=== PATIENT | female | born 1960 | race Caucasian/White ===

== ENCOUNTER 2023-11-07 12:14 | Outpatient (AMB) | payer MEDICARE, OTHER, SELFPAY ==
--- NOTE | 2023-11-07 12:19 | HO.NEPHOV ---
Vital Signs 11/07/23 12:20 Height 5 ft 4 in Weight 380 lb BMI 65.2 BP 132/82 Blood Pressure Location Lt brachial Position Sitting Pulse 91 Pulse Source Pulse Oximeter Pulse Oximetry (%) 95 Oxygen Delivery Method Room Air Intake Visit Reasons: CDK/ Continue care RTANE/ Confirmed Hand Leather Trimmer Required: No Accompanied by: Son Allergies chlorpromazine [From Thorazine] Allergy (Verified 11/07/23 12:24) Unknown Penicillins Allergy (Verified 11/07/23 12:24) Unknown HPI Comments Details: 58-year-old man with history hematuria. She has a renal mass and has been followed by Urology. - She feels that diuretics are causing the hematuria. Especially Lasix. She wants to try HCTZ. [facility] Surgical History (Updated 11/07/23 @ 12:28 by Jovita Ramsey MA) History of rectal surgery H/O arthroscopic knee surgery H/O wrist surgery History of section History of hernia repair S/P removal of right ovary History of cholecystectomy H/O: knee surgery H/O: hysterectomy History of lumpectomy Family History (Updated 11/07/23 @ 12:29 by Jovita Ramsey MA) Father Diabetes Sister Diabetes Brother Diabetes Stroke Mother Hypertension Social History (Updated 11/07/23 @ 12:30 by Jovita Ramsey MA) Alcohol intake: never Patient Tobacco Use Status: Never used Tobacco Physical Exam Vital Signs: Last Vital Signs Pulse 91 11/07/23 12:20 BP 132/82 11/07/23 12:20 Pulse Ox 95 11/07/23 12:20 Oxygen Delivery Method Room Air 11/07/23 12:20 BMI result Body Mass Index 65.2 Awake. Comfortable. Will be Neck is supple. Mucosa moist. Lungs clear Heart S1-S2 heard no gallop. Abdomen soft. Extremities no edema. No involuntary movements. No myoclonus. Const General: comfortable Orientation/consciousness: patient oriented x3 HEENT Head: No normal to inspection Mouth: moist mucous membranes Neck Neck: Yes supple and Yes no JVD Resp Auscultation: clear to auscultation bilaterally, no rales and rub present Cardio Jugular venous distension: no JVD Palpation: no palpable S3 and no palpable S4 Heart sounds: no rubs GI Palpation (GI): Soft to palpation and nontender Percussion: No Fluid wave present General: Yes no CVA tenderness Back/Spine/Pelvis Back: no CVA tenderness Skin General skin exam: no rashes or lesions noted Neuro General: patient oriented x3 Extrem General: Yes no pedal edema and No clubbing Results Reviewed Nephrology Results: No Data to Display Assessment & Plan Assessment & Plan (1) UTI (urinary tract infection): Code(s): N39.0 - Urinary tract infection, site not specified Category: Medical Plan UTI resolved. She feels that diuretic could be playing a role. At her request I would switch hctz QD instead of QOD She will need Urology follow-up Coding Level of Care Code Est Pt Level 2 (87581) Diagnoses UTI (urinary tract infection) N39.0
[2023-11-07 12:20] VITALS: BP 132/82; PULSE 91; O2SAT 95; BMI 65.2
== END 2023-11-07 12:49 | disposition home or self-care (01) ==
PROVIDERS: PCP Family Medicine; Visit Provider Internal Medicine Hypertension Specialist
DX: N39.0 Urinary tract infection, site not specified (principal)
CPT/HCPCS: 99212

== ENCOUNTER → 2023-11-07 12:14 | Outpatient (BNVA) | payer MEDICARE, OTHER, SELFPAY | PROVIDERS: PCP Family Medicine; Visit Provider Internal Medicine Hypertension Specialist | DX: N39.0 Urinary tract infection, site not specified (principal) | CPT/HCPCS: 99212 ==

== ENCOUNTER 2024-05-28 14:29 | Outpatient (AMB) | payer MEDICARE, OTHER, SELFPAY ==
--- NOTE | 2024-05-28 14:22 | HO.NEPHOV ---
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 Accompanied by: Self / Same As Patient Allergies chlorpromazine [From Thorazine] Allergy (Verified 05/28/24 14:23) Unknown Penicillins Allergy (Verified 05/28/24 14:23) Unknown Medication List - Last Reconciled 05/28/24 by Favian Ndiaye MD alprazolam 0.5 mg PO DAILY PRN azelastine-fluticasone 137-50 mcg/spray 1 spray intranasal BID bisoprolol fumarate 5 mg PO DAILY cephalexin 500 mg PO Q12H cetirizine 10 mg PO DAILY PRN esomeprazole magnesium 40 mg PO DAILY hydrochlorothiazide 12.5 mg PO .every other day levalbuterol HCl mg inhalation levalbuterol tartrate 45 mcg/actuation (Xopenex HFA) 1 puff inhalation Q6H PRN lidocaine 5% 1 patch topical DAILY losartan 50 mg PO DAILY metronidazole 0.75% appl topical montelukast 10 mg PO DAILY nitroglycerin 0.3 mg sublingual PRN oxycodone 5 mg PO TID PRN HPI Comments Details: 58-year-old man with history hematuria. She has a renal mass and has been followed by Urology. - She feels that diuretics are causing the hematuria. Especially Lasix. She wants to try HCTZ. 05/28/24 BP sub optimal c/o cough PFSH Surgical History History of rectal surgery H/O arthroscopic knee surgery H/O wrist surgery History of section History of hernia repair S/P removal of right ovary History of cholecystectomy H/O: knee surgery H/O: hysterectomy History of lumpectomy Family History Father Diabetes Sister Diabetes Brother Diabetes Stroke Mother Hypertension Social History Alcohol intake: never Patient Tobacco Use Status: Never used Tobacco Telehealth Telehealth Telehealth Platform: Telephone Location of provider rendering services: practice address Location of patient: address on file Telehealth method: voice only Results Reviewed Nephrology Results: No Data to Display Assessment & Plan Assessment & Plan (1) UTI (urinary tract infection): Code(s): N39.0 - Urinary tract infection, site not specified Category: Medical (2) HTN (hypertension): Code(s): I10 - Essential (primary) hypertension Category: Medical Plan: BP sub optimal Cough may be due to ACEi DC LISINOPRIL Try Losartan 50 mg daily Plan UTI resolved. She feels that diuretic could be playing a role. At her request I would switch hctz QD instead of QOD She will need Urology follow-up Medications: New losartan 50 mg PO DAILY 30 tabs 4RF Coding Level of Care Code Tele Est Pt Level 2 (26919) Diagnoses UTI (urinary tract infection) N39.0 HTN (hypertension) I10 Time Spent (min) 10
== END 2024-05-28 16:57 | disposition home or self-care (01) ==
PROVIDERS: PCP Family Medicine; Visit Provider Internal Medicine Hypertension Specialist
DX: N39.0 Urinary tract infection, site not specified (principal); I10 Essential (primary) hypertension
CPT/HCPCS: 99441

== ENCOUNTER 2024-12-24 08:55 | Outpatient (AMB) | payer MEDICARE, OTHER, SELFPAY ==
--- NOTE | 2024-12-24 08:54 | HO.NEPHOV_ITS ---
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 Accompanied by: Self / Same As Patient Allergies chlorpromazine (From Thorazine) Allergy (Verified 12/24/24 08:55) Unknown Penicillins Allergy (Verified 12/24/24 08:55) Unknown Medication List - Last Reconciled 12/24/24 by Favian Ndiaye MD alprazolam 0.5 mg PO DAILY PRN azelastine-fluticasone 137-50 mcg/spray 1 spray intranasal BID bisoprolol fumarate 5 mg PO DAILY cephalexin 500 mg PO Q12H cetirizine 10 mg PO DAILY PRN esomeprazole magnesium 40 mg PO DAILY furosemide 10 mg PO DAILY hydrochlorothiazide 12.5 mg PO .every other day levalbuterol HCl mg inhalation levalbuterol tartrate 45 mcg/actuation (Xopenex HFA) 1 puff inhalation Q6H PRN lidocaine 5% 1 patch topical DAILY lisinopril 5 mg PO DAILY metronidazole 0.75% appl topical montelukast 10 mg PO DAILY nitroglycerin 0.3 mg sublingual PRN oxycodone 5 mg PO TID PRN PFSH Surgical History History of rectal surgery H/O arthroscopic knee surgery H/O wrist surgery History of section History of hernia repair S/P removal of right ovary History of cholecystectomy H/O: knee surgery H/O: hysterectomy History of lumpectomy Family History Father Diabetes Sister Diabetes Brother Diabetes Stroke Mother Hypertension Social History Alcohol intake: never Patient Tobacco Use Status: Never used Tobacco Physical Exam Vital Signs: Last Vital Signs BP 149/77 H 12/24/24 08:59 Telehealth Telehealth Telehealth Platform: Telephone Location of provider rendering services: practice address Location of patient: address on file Patient Identification confirmed using: Name, : Yes Telehealth method: voice only Patient verbally consented to treatment: Yes Patient verbally consented to billing insurance company: Yes Patient informed of any privacy concerns related to visit: Yes Minutes spent on Phone/Video with Pt.: 12 Results Reviewed Results Reviewed: cr 0.45 Assessment & Plan Assessment & Plan (1) UTI (urinary tract infection): Code(s): N39.0 - Urinary tract infection, site not specified Category: Medical (2) HTN (hypertension): Code(s): I10 - Essential (primary) hypertension Category: Medical Plan: BP sub optimal Now on Lisinopril and not taking Losartan Not sure why it was switched back Ok to add spironolactone Watch Potassium levels Plan UTI resolved. She feels that diuretic could be playing a role. At her request I would switch hctz QD instead of QOD She will need Urology follow-up Orders: Orders Basic Metabolic Panel 6 Months I10 - Essential (primary) hypertension Coding Level of Care Code Tele Est Pt Level 3 (92456) Diagnoses UTI (urinary tract infection) N39.0 HTN (hypertension) I10
[2024-12-24 08:59] VITALS: BP 149/77
--- OUTSIDE RECORDS SUMMARY | 2024-12-24 09:34 | XMS_ITS | Encounter Summary ---
Author Organization [facility] Address [address] [place] [address] Phone Care Team Providers Care Mortician Helper Name Role Phone Chloe Farfan MD Primary Care Provider [phone] Encounter Details Date Type Department Care Team (Late st Contact Info) Description 06/13/2022 Telephone [facility] [address] [place] [address] Favian Ndiaye MD Social History Tobacco Use Types Packs/Day Years Used Date Smoking Tobacco: Former Cigarettes Q uit: 07/02/1981 Comments:Smoking History Inf o:Every day Alcohol Use Standard Drinks/Week Comments Yes 0 (1 standard drink = 0.6 oz pure alcohol) Alcoholic Drinks/day: Occasional social drink Comments Unknown Sex and Gender Information Value Date Recorded Sex Assigned at Not on file Legal Sex Female 4:43 PM EST Gender Identity Not on file Sexual Orientation Not on file documented as of this encounter Miscellaneous Notes * Telephone Encounter - Clementine Segura - 06/14/2022 9:36 AM EST Called pt left a voice mail * Telephone Encounter - Ruma Reid - 06/13/2022 2:17 PM EST Pt called she needs new lab orders for her appt on 08/16/22. Please mail thank you documented in this encounter Plan of Treatment Not on file documented as of this encounter Visit Diagnoses Not on filedocumented in this encounter Care Teams Mortician Helper Relationship Specialty Start Date End Date Chloe Farfan MD [address] [place] [address] PCP - General 07/12/20 documented as of this encounter
== END 2024-12-24 09:23 | disposition home or self-care (01) ==
LOC: HO.HKAS 08:56
PROVIDERS: PCP Family Medicine; Visit Provider Internal Medicine Hypertension Specialist
DX: N39.0 Urinary tract infection, site not specified (principal); I10 Essential (primary) hypertension
CPT/HCPCS: 99213

== ENCOUNTER → 2024-12-24 08:55 | Outpatient (BNVA) | payer MEDICARE, OTHER, SELFPAY | PROVIDERS: PCP Family Medicine; Visit Provider Internal Medicine Hypertension Specialist | DX: Z13.89 Encounter for screening for other disorder (principal) ==